=== PATIENT | female | born 1940 | race Caucasian/White ===

== ENCOUNTER 2021-12-27 10:21 | Inpatient (IN) ==
--- NOTE | 2021-12-27 10:38 | Emergency Department Note ---
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 Staff at her assisted noticed some bright red blood per rectum today and patient seemed more generally weak than usual. No known history of GI bleeding. Patient is a poor historian and is unable to provide any background. No report of any fever, cough, vomiting, or falls. Patient is A&Ox1 at baseline. Related Data Home Medications Medication Instructions Recorded Confirmed albuterol sulfate 90 mcg/actuation 2 puff INH Q4HP PRN 01/04/19 01/04/19 aerosol inhaler apixaban 2.5 mg tablet 2.5 mg PO BID 01/04/19 08/28/21 arginine 7 gram-glutam 7 1 packet PO BID 01/04/19 01/04/19 gram-CaHMB 1.5 [id number]-rq-min oral pwd pkt levothyroxine 25 mcg tablet 25 mcg PO DAILY 01/04/19 08/28/21 magnesium hydroxide 400 mg/5 mL 30 ml PO BID 01/04/19 08/28/21 oral suspension metoprolol succinate 50 mg 12.5 mg PO HS 01/04/19 08/28/21 tablet,extended release 24 hr [id number] 1 tab PO DAILY 01/04/19 08/28/21 fumarate 7.5 mg-folic acid 400 mcg tablet omeprazole 20 mg capsule,delayed 40 mg PO BID 01/04/19 01/04/19 release polyethylene glycol 3350 17 gram 17 gm PO DAILY 01/04/19 08/28/21 oral powder packet (Miralax) senna leaf extract 176 mg/5 mL 176 mg PO BID 01/04/19 08/28/21 oral syrup spironolactone 25 1 tab PO DAILY 01/04/19 08/28/21 mg-hydrochlorothiazide 25 mg tablet Zoloft PO HS 05/18/19 acetaminophen 500 mg tablet 650 mg PO Q4HP PRN 05/18/19 08/28/21 melatonin 5 mg tablet 5 mg PO HS 05/18/19 08/28/21 Allergies Allergy/AdvReac Type Severity Reaction Status Date / Time Penicillins AdvReac Verified 05/18/19 04:35 Review of Systems ROS ROS Narrative: Narrative: Limitations: ROS unobtainable due to patients medical condition Cardiovascular: Denies chest pain Respiratory: Denies shortness of breath Gastrointestinal: Reports hematochezia; Denies abdominal pain or nausea Neurological: Denies headache PFSH Narrative Patient History Narrative: Narrative: Medical/Surgical/Family History All Active Problems (Updated 12/27/21 @ 14:56 by Rolando Drake MD) Cellulitis (Acute) History of fall (Acute) Fall (Acute) Chronic anticoagulation (Acute) UTI (urinary tract infection) (Acute) Panniculitis (Acute) Acute lower GI bleeding (Acute) Medical History Cellulitis Social History Smoking Status: Former smoker Exam Narrative Narrative: Narrative: General Limitations: altered mental status General appearance: Present sleepy and other (Arousable to voice) Head Head: Present atraumatic and normocephalic Eye Eye: Present normal appearance, PERRL and EOMI; Absent scleral icterus or co njunctival injection ENT ENT: Present mucous membranes moist Neck Neck: Present normal inspection, full ROM and trachea midline Chest Chest: Present symmetric chest wall rise Respiratory Respiratory: Present normal lung sounds bilaterally; Absent respiratory distress, wheezes, stridor, accessory muscle use or prolonged expiratory phase Cardiovascular Cardiovascular: Present regular rate and normal rhythm; Absent systolic murmur or diastolic murmur Adbominal Abdominal: Present soft; Absent distention, tenderness, guarding, rebound or rigidity Rectal Rectal: Present normal inspection, heme (+) stool and bloody stool; Absent decreased rectal tone or tenderness Extremities Extremities: Present normal inspection; Absent pretibial edema Neurological Neurological: Present alert and other (Generally weak, oriented x1, no focal neurologic deficits noted. Difficulty with neurologic exam given her history of dementia); Absent motor sensory deficit Expanded Neurological Patient oriented to: Present person; Absent place or time Speech: Absent expressive aphasia or dysarthria Motor strength - LUE: 4/5 Motor strength - RUE: 4/5 Motor strength - LLE: 4/5 Motor strength - RLE: 4/5 UPPER MOTOR NEURON EXAM: stacy neglect: Normal SENSORY EXAM UPPER EXTREMITY: Normal: light touch SENSORY EXAM LOWER EXTREMITY: Normal: light touch Coma Scale Eye Opening: To Voice Coma Scale Motor Response: Obeys Commands Coma Scale Verbal Response: Oriented Coma Scale Total: 14 Psychiatric Psychiatric: Present normal affect and normal mood Skin Skin: Present warm (WNL) and dry Course Consultations Consultation #1: Dr. Liriano, hospitalist Time: 14:45 Vital Signs Vital signs: Vital Signs Pulse Rate 106 H 12/27/21 10:21 Respiratory Rate 16 12/27/21 10:21 Blood Pressure 115/98 12/27/21 10:21 Pulse Oximetry (%) 98 12/27/21 10:21 Temperature 96.8 F L 12/27/21 16:00 Pulse Rate 98 H 12/27/21 16:00 Respiratory Rate 16 12/27/21 16:00 Blood Pressure 104/78 12/27/21 16:00 Pulse Oximetry (%) 100 12/27/21 16:00 MDM MDM Narrative Medical decision making narrative: 81-year-old female presenting with rectal bleeding. She is mildly tachycardic but otherwise vital signs are stable. She does have gross rectal bleeding on exam. Will obtain labs, chest x-ray, UA, and reevaluate. Labs are stable, hemoglobin is 13.2. She does have mild hyperkalemia to 5.2. BUN is elevated to 38 consistent with her lower GI bleeding. Vital signs are stable. I discussed the patient with hospitalist, Dr. Liriano, who will admit. Lab Data Lab results reviewed: Yes I reviewed the patient's lab results. Result diagrams: 12/27/21 17:33 12/27/21 11:25 Labs: Lab Results 12/27/21 12/27/21 12/27/21 Range/Units 11:25 11:26 11:26 WBC 14.7 H (4.5-11.0) K/mcL RBC 4.07 (3.59-5.38) M/mcL Hgb 13.2 (11.2-15.7) g/dL Hct 41.6 (34.1-44.9) % MCV 102.2 H (80.0-100.0) fL MCH 32.4 (26.0-34.0) pg MCHC 31.7 (31.0-36.0) g/dL RDW 13.1 (11.5-14.5) % Plt Count 379 (140-440) K/mcL MPV 10.0 (7.4-10.4) fL Neut % (Auto) 92.1 H (38.0-78.0) % Lymph % (Auto) 4.1 L (15.5-49.0) % [place] % (Auto) 3.5 (1.0-12.0) % Eos % (Auto) 0.2 (0.0-7.0) % Baso % (Auto) 0.1 (0.0-2.0) % Lymph # (Auto) 0.60 L (1.50-4.80) K/mcL [place] # (Auto) 0.52 (0.10-0.90) K/mcL Eos # (Auto) 0.03 (0.00-0.70) K/mcL Baso # (Auto) 0.01 (0.00-0.30) K/mcL Absolute Neutrophils 13.53 H (1.80-8.00) K/mcL PT (11.9-14.5) sec INR (0.9-1.1) APTT (20.0-37.0) sec VBG Lactic Acid 1.4 (0.5-2.0) mmol/L Sodium 133 (133-145) mmol/L Potassium 5.2 H (3.3-5.1) mmol/L Chloride 100 (96-108) mmol/L Carbon Dioxide 24 (22-30) mmol/L Anion Gap 9.0 (8.0-16.0) BUN 38 H (8-23) mg/dL Creatinine 0.9 (0.6-1.1) mg/dL GFR Calculation 59 Glucose 139 H (70-105) mg/dL Calcium 9.3 (8.6-10.4) mg/dL Total Bilirubin 0.8 (0.1-1.0) mg/dL AST 17 (<32) U/L ALT 9 (<40) U/L Alkaline Phosphatase 116 (39-117) U/L Total Protein 6.9 (5.9-8.4) gm/dL Albumin 2.4 L (3.2-5.2) gm/dL Globulin 4.5 H (2.2-3.7) gm/dL Albumin/Globulin Ratio 0.5 L (1.0-2.3) Urine Color Urine Appearance (Clear) Urine pH (5.0-9.0) Ur Specific [place] (1.000-1.035) Urine Protein (Negative) mg/dL Urine Glucose (UA) (Negative) mg/dL Urine Ketones (Negative) mg/dL Urine Occult Blood (Negative) jacquelyn/mcL Urine Nitrate (Negative) Urine Bilirubin (Negative) mg/dL Urine Urobilinogen mg/dL Ur Leukocyte Esterase (Negative) /uL Urine RBC (0-3) /hpf Urine WBC (0-4) /hpf Ur Squamous Epith Cells (0-4) /hpf Ur Transition Epith Cell (0-2) /hpf Amorphous Crystals (None) /hpf Urine Bacteria (0) /hpf Hyaline Casts (0-2) /lph Urine Mucus (None) /hpf Ur Culture Indicated? 12/27/21 12/27/21 Range/Units 11:30 12:30 WBC (4.5-11.0) K/mcL RBC (3.59-5.38) M/mcL Hgb (11.2-15.7) g/dL Hct (34.1-44.9) % MCV (80.0-100.0) fL MCH (26.0-34.0) pg MCHC (31.0-36.0) g/dL RDW (11.5-14.5) % Plt Count (140-440) K/mcL MPV (7.4-10.4) fL Neut % (Auto) (38.0-78.0) % Lymph % (Auto) (15.5-49.0) % [place] % (Auto) (1.0-12.0) % Eos % (Auto) (0.0-7.0) % Baso % (Auto) (0.0-2.0) % Lymph # (Auto) (1.50-4.80) K/mcL [place] # (Auto) (0.10-0.90) K/mcL Eos # (Auto) (0.00-0.70) K/mcL Baso # (Auto) (0.00-0.30) K/mcL Absolute Neutrophils (1.80-8.00) K/mcL PT 23.5 H (11.9-14.5) sec INR 2.0 H (0.9-1.1) APTT 36.2 (20.0-37.0) sec VBG Lactic Acid (0.5-2.0) mmol/L Sodium (133-145) mmol/L Potassium (3.3-5.1) mmol/L Chloride (96-108) mmol/L Carbon Dioxide (22-30) mmol/L Anion Gap (8.0-16.0) BUN (8-23) mg/dL Creatinine (0.6-1.1) mg/dL GFR Calculation Glucose (70-105) mg/dL Calcium (8.6-10.4) mg/dL Total Bilirubin (0.1-1.0) mg/dL AST (<32) U/L ALT (<40) U/L Alkaline Phosphatase (39-117) U/L Total Protein (5.9-8.4) gm/dL Albumin (3.2-5.2) gm/dL Globulin (2.2-3.7) gm/dL Albumin/Globulin Ratio (1.0-2.3) Urine Color Wendi Urine Appearance Clear (Clear) Urine pH 5.5 (5.0-9.0) Ur Specific [place] 1.020 (1.000-1.035) Urine Protein 30 mg/dl A (Negative) mg/dL Urine Glucose (UA) Negative (Negative) mg/dL Urine Ketones Trace A (Negative) mg/dL Urine Occult Blood Trace-intact A (Negative) jacquelyn/mcL Urine Nitrate Negative (Negative) Urine Bilirubin Negative (Negative) mg/dL Urine Urobilinogen Normal mg/dL Ur Leukocyte Esterase Negative (Negative) /uL Urine RBC 18 H (0-3) /hpf Urine WBC 10 H (0-4) /hpf Ur Squamous Epith Cells 22 H (0-4) /hpf Ur Transition Epith Cell 1 (0-2) /hpf Amorphous Crystals Few A (None) /hpf Urine Bacteria Few A (0) /hpf Hyaline Casts 10 H (0-2) /lph Urine Mucus Mod A (None) /hpf Ur Culture Indicated? No ED POC Tests ED POC Tests: TREVA - SARS Antigen Negative Radiology Data Radiology results reviewed: Yes I reviewed the patient's radiology results. Radiology results narrative: Ordering Physician:Rolando Drake M.D. Date of Service:12/27/21 Procedure(s):XR chest 1V portable CLINICAL INFORMATION: Dyspnea COMPARISON: 08/28/2021 plain film and chest CT 05/14/2019 TECHNIQUE: Portable FINDINGS: Moderate cardiomegaly is unchanged. Known saccular aneurysm of the ascending thoracic aorta is unchanged by plain film. There is also stable ectasia of the remaining thoracic aorta. The remaining mediastinum and pulmonary vascular are normal. Lungs are clear. No effusions. Mild elevation left diaphragm is unchanged. 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 No acute cardiopulmonary disease Mild chronic elevation left diaphragm. Interpreted and Authenticated by: Nico Moreno 12/27/21 EKG Data EKG #1: EKG attestation: Yes I reviewed and interpreted this EKG. and Yes There are no EKG findings of acute coronary syndrome EKG results narrative: Atrial fibrillation at 117 bpm. Left bundle branch block noted. No ST elevation or depression. Interpretation: no acute changes Discharge Plan Patient/Caregiver Discharge Instructions Pt seen by BATCH STILL OPERATOR/PA only: No Clinical Impression: Acute lower GI bleeding Patient Disposition: Xfer As Inpt ([facility]) Condition: Fair Discharge Date/Time: 12/27/21 15:55
[2021-12-27] MEDS ORDERED: 0.9 % SODIUM CHLORIDE 1,000 ML IV ONE ×2 (10:52→15:53)
--- NOTE | 2021-12-27 11:42 | XRay Report ---
CLINICAL INFORMATION: Dyspnea COMPARISON: 08/28/2021 plain film and chest CT 05/14/2019 TECHNIQUE: Portable FINDINGS: Moderate cardiomegaly is unchanged. Known saccular aneurysm of the ascending thoracic aorta is unchanged by plain film. There is also stable ectasia of the remaining thoracic aorta. The remaining mediastinum and pulmonary vascular are normal. Lungs are clear. No effusions. Mild elevation left diaphragm is unchanged. 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 No acute cardiopulmonary disease Mild chronic elevation left diaphragm. Interpreted and Authenticated by: Nico Moreno 12/27/21
[2021-12-27 12:16] LABS: Basophils # (Auto) 0.01 K/mcL (0.00-0.30); Basophils % (Auto) 0.1 % (0.0-2.0); Eosinophils # (Auto) 0.03 K/mcL (0.00-0.70); Eosinophils % (Auto) 0.2 % (0.0-7.0); Hematocrit 41.6 % (34.1-44.9); Hemoglobin 13.2 g/dL (11.2-15.7); Lymphocytes % (Auto) 4.1 % (15.5-49.0); Mean Cell Volume 102.2 fL (80.0-100.0); Mean Corpuscular HGB Conc 31.7 g/dL (31.0-36.0); Monocytes # (Auto) 0.52 K/mcL (0.10-0.90); Monocytes % (Auto) 3.5 % (1.0-12.0); Neutrophils % (Auto) 92.1 % (38.0-78.0); Platelet Count 379 K/mcL (140-440); RBC 4.07 M/mcL (3.59-5.38); Red Cell Distribution Width 13.1 % (11.5-14.5); WBC 14.7 K/mcL (4.5-11.0)
[2021-12-27 12:35] LABS: ALT/SGPT 9 U/L (<40); AST/SGOT 17 U/L (<32); Albumin 2.4 gm/dL (3.2-5.2); Albumin/Globulin Ratio 0.5 (1.0-2.3); Alkaline Phosphatase 116 U/L (39-117); Bilirubin,Total 0.8 mg/dL (0.1-1.0); Blood Urea Nitrogen 38 mg/dL (8-23); Calcium 9.3 mg/dL (8.6-10.4); Carbon Dioxide 24 mmol/L (22-30); Chloride 100 mmol/L (96-108); Globulin 4.5 gm/dL (2.2-3.7); Glomerular Filtration Rate 59; Glucose 139 mg/dL (70-105)
[2021-12-27 12:47] LABS: Partial Thromboplastin Time 36.2 sec (20.0-37.0)
[2021-12-27 12:51] LABS: Prothrombin Time 23.5 sec (11.9-14.5)
[2021-12-27 13:59] LABS: Appearance,Urine Clear (Clear); Bacteria,Urine FEW /hpf (0); Bilirubin,Urine Negative (Negative); Color,Urine Amber; Culture Indicated,Urine No; Glucose,Urine (UA) Negative (Negative); Ketones,Urine Trace mg/dL (Negative); Leukocyte Esterase,Urine Negative /uL (Negative); Mucus,Urine MOD /hpf; Nitrate,Urine Negative (Negative); PH,Urine 5.5 (5.0-9.0); Urine Amorphous Crystals FEW /hpf; Urine Blood Trace-intact ery/mcL (Negative); Urine Hyaline Cast 10 /lph (0-2); Urine RBC 18 /hpf (0-3); Urine Squamous Epithelial Cell 22 /hpf (0-4); Urine Transitional Epi Cells 1 /hpf (0-2); Urine WBC 10 /hpf (0-4); Urobilinogen,Urine Normal
--- NOTE | 2021-12-27 15:24 | Internal Med History&Physical ---
HPI History of Present Illness Patient information: Note initiated : 12/27/21 at 3:12 pm Service Date, if different from initiated Date: [] Patient: Vickie Guadarrama 81 y/o F admitted on for weakness. Chief Complaint: [] History of present illness: Vickie Guadarrama is a 81 year old female with a history not limited to hypertension, atrial fibrillation, hypothyroidism, ascending aortic aneurysm, vascular dementia, reported upper GI bleed in 2019 who currently resides in a assisted facility. Staff at the SNF noticed bright red blood per rectum on 12/27/2021. The patient was sent to the emergency department where she was noted to have melanotic stools. The patient was hemodynamically stable, hemoglobin was normal at 13.2. The patient was noted to be taking Eliquis 2.5 mg twice daily for atrial fibrillation. Hospital medicine was asked to admit the patient for monitoring and further management. The patient is unable to provide any history due to dementia. Collateral information obtained from the patient's daughter revealed that the patient had a GI bleed in 2019 that was probably an upper GI bleed. Eliquis was held at that time, the patient was treated with PPI. Patient's daughter recalls the diagnosis of a gastric ulcer but does not remember the details. She said that Eliquis was held at that time but the patient unfortunately developed an ischemic stroke likely secondary to atrial fibrillation and Eliquis was resumed. Goals of care were discussed, the patient's daughter confirmed that thepatient's CODE STATUS is DNR/DNI. Review of systems: Unable to obtain due to dementia. Physical exam Head: Atraumatic, normal inspection. Eyes: normal appearance, no scleral icterus. Neck: full ROM Respiratory: no respiratory distress. Cardiovascular: Irregular tachycardia. GI/Abdominal: soft, nontender, no guarding. Extremities: full range of motion, nontender. Neurological: intact motor, intact sensation. Psychiatric: Cognitive impairment. Skin: warm, normal color PFSH PFSH All Active Problems (Updated 12/27/21 @ 14:56 by Rolando Drake MD) Cellulitis (Acute) History of fall (Acute) Fall (Acute) Chronic anticoagulation (Acute) UTI (urinary tract infection) (Acute) Panniculitis (Acute) Acute lower GI bleeding (Acute) Medical History Cellulitis MEDS/ALLERGIES Home Medications and Allergies Home Medications Medication Instructions Recorded Confirmed Type albuterol sulfate 90 mcg/actuation 2 puff INH Q4HP PRN 01/04/19 01/04/19 History aerosol inhaler apixaban 2.5 mg tablet 2.5 mg PO BID 01/04/19 08/28/21 History arginine 7 gram-glutam 7 1 packet PO BID 01/04/19 01/04/19 History gram-CaHMB 1.5 [id number]-[id number]-min oral pwd pkt levothyroxine 25 mcg tablet 25 mcg PO DAILY 01/04/19 08/28/21 History magnesium hydroxide 400 mg/5 mL 30 ml PO BID 01/04/19 08/28/21 History oral suspension metoprolol succinate 50 mg 12.5 mg PO HS 01/04/19 08/28/21 History tablet,extended release 24 hr [id number]-yauz 1 tab PO DAILY 01/04/19 08/28/21 History fumarate 7.5 mg-folic acid 400 mcg tablet omeprazole 20 mg capsule,delayed 40 mg PO BID 01/04/19 01/04/19 History release polyethylene glycol 3350 17 gram 17 gm PO DAILY 01/04/19 08/28/21 History oral powder packet (Miralax) senna leaf extract 176 mg/5 mL 176 mg PO BID 01/04/19 08/28/21 History oral syrup spironolactone 25 1 tab PO DAILY 01/04/19 08/28/21 History mg-hydrochlorothiazide 25 mg tablet Zoloft PO HS 05/18/19 History acetaminophen 500 mg tablet 650 mg PO Q4HP PRN 05/18/19 08/28/21 History melatonin 5 mg tablet 5 mg PO HS 05/18/19 08/28/21 History Allergies Allergy/AdvReac Type Severity Reaction Status Date / Time Penicillins AdvReac Verified 05/18/19 04:35 EXAM Constitutional Vitals: Pulse Resp BP Pulse Ox 106 H 21 122/92 98 12/27/21 10:21 12/27/21 14:31 12/27/21 14:31 12/27/21 10:21 DATA Data Completed and Pending Labs: Labs from last 24 hours 12/27/21 12/27/21 12/27/21 12:30 11:30 11:26 WBC RBC Hgb Hct MCV MCH MCHC RDW Plt Count MPV Neut % (Auto) Lymph % (Auto) [place] % (Auto) Eos % (Auto) Baso % (Auto) Lymph # (Auto) [place] # (Auto) Eos # (Auto) Baso # (Auto) Absolute Neutrophils PT 23.5 H INR 2.0 H APTT 36.2 VBG Lactic Acid 1.4 Sodium Potassium Chloride Carbon Dioxide Anion Gap BUN Creatinine GFR Calculation Glucose Calcium Total Bilirubin AST ALT Alkaline Phosphatase Total Protein Albumin Globulin Albumin/Globulin Ratio Urine Color Wendi Urine Appearance Clear Urine pH 5.5 Ur Specific [place] 1.020 Urine Protein 30 mg/dl A Urine Glucose (UA) Negative Urine Ketones Trace A Urine Occult Blood Trace-intact A Urine Nitrate Negative Urine Bilirubin Negative Urine Urobilinogen Normal Ur Leukocyte Esterase Negative Urine RBC 18 H Urine WBC 10 H Ur Squamous Epith Cells 22 H Ur Transition Epith Cell 1 Amorphous Crystals Few A Urine Bacteria Few A Hyaline Casts 10 H Urine Mucus Mod A Ur Culture Indicated? No 12/27/21 12/27/21 11:26 11:25 WBC 14.7 H RBC 4.07 Hgb 13.2 Hct 41.6 MCV 102.2 H MCH 32.4 MCHC 31.7 RDW 13.1 Plt Count 379 MPV 10.0 Neut % (Auto) 92.1 H Lymph % (Auto) 4.1 L [place] % (Auto) 3.5 Eos % (Auto) 0.2 Baso % (Auto) 0.1 Lymph # (Auto) 0.60 L [place] # (Auto) 0.52 Eos # (Auto) 0.03 Baso # (Auto) 0.01 Absolute Neutrophils 13.53 H PT INR APTT VBG Lactic Acid Sodium 133 Potassium 5.2 H Chloride 100 Carbon Dioxide 24 Anion Gap 9.0 BUN 38 H Creatinine 0.9 GFR Calculation 59 Glucose 139 H Calcium 9.3 Total Bilirubin 0.8 AST 17 ALT 9 Alkaline Phosphatase 116 Total Protein 6.9 Albumin 2.4 L Globulin 4.5 H Albumin/Globulin Ratio 0.5 L Urine Color Urine Appearance Urine pH Ur Specific [place] Urine Protein Urine Glucose (UA) Urine Ketones Urine Occult Blood Urine Nitrate Urine Bilirubin Urine Urobilinogen Ur Leukocyte Esterase Urine RBC Urine WBC Ur Squamous Epith Cells Ur Transition Epith Cell Amorphous Crystals Urine Bacteria Hyaline Casts Urine Mucus Ur Culture Indicated? A/P Narrative A/P Narrative: Assessment: 81 year old female with a history not limited to hypertension, atrial fibrillation, hypothyroidism, ascending aortic aneurysm, vascular dementia, reported upper GI bleed in 2019 who currently resides in a assisted facility admitted for a GI bleed. Initial hemoglobin in the ED was normal, the patient was also hemodynamically stable. Goals of care reviewed with the patient's daughter, the patient is DNR/DNI. Plan is to monitor the patient for ongoing bleeding while holding anticoagulation. If the patient continues to have a GI bleed then family will consider endoscopic work-up. #Acute GI bleed #Reported history of upper GI bleed #Atrial fibrillation on Eliquis #Essential hypertension #History of ischemic stroke #Hypothyroidism #Ascending aortic aneurysm #Vascular dementia Plan -Admit to observation for monitoring and conservative management unless the patient continues to bleed. -Protonix IV 80 mg bolus then 40 mg twice daily. -Trend hemoglobin. -Stool H. pylori antigen. -Monitor for ongoing GI bleed. -Home medication reconciliation. -Consider endoscopic work-up if the patient continues to have GI bleeding. -CODE STATUS: DNR/DNI -Disposition: Back to SNF when stable. Time Spent With Patient Time: Total time spent is greater than 50% in coordination of care (as documented) at patient's floor/unit and/or counseling patient:
[2021-12-27] MEDS ORDERED: ACETAMINOPHEN 325 MG TABLET PO PRN (15:26)
[2021-12-27] MEDS ORDERED: PANTOPRAZOLE 40 MG VIAL IV ONE (15:26)
[2021-12-27] MEDS ORDERED: ONDANSETRON 4 MG/2 ML VIAL IV PRN (15:26)
[2021-12-27] MEDS: PANTOPRAZOLE 40 MG VIAL IV SCH (18:06)
[2021-12-27] MEDS: 0.9 % SODIUM CHLORIDE 10 ML SYRINGE IV SCH (23:18)
[2021-12-27] MEDS: SENNOSIDES 1 TABLET PO SCH (23:18)
[2021-12-28] MEDS: 0.9 % SODIUM CHLORIDE 10 ML SYRINGE IV SCH ×3 (06:09→21:29)
[2021-12-28 06:40] LABS: Basophils # (Auto) 0.04 K/mcL (0.00-0.30); Basophils % (Auto) 0.2 % (0.0-2.0); Eosinophils # (Auto) 0.06 K/mcL (0.00-0.70); Eosinophils % (Auto) 0.3 % (0.0-7.0); Hematocrit 37.5 % (34.1-44.9); Hemoglobin 11.7 g/dL (11.2-15.7); Lymphocytes # (Auto) 0.82 K/mcL (1.50-4.80); Lymphocytes % (Auto) 4.4 % (15.5-49.0); Mean Cell Volume 102.7 fL (80.0-100.0); Mean Corpuscular HGB Conc 31.2 g/dL (31.0-36.0); Mean Platelet Volume 10.2 fL (7.4-10.4); Monocytes # (Auto) 0.67 K/mcL (0.10-0.90); Monocytes % (Auto) 3.6 % (1.0-12.0); Neutrophils % (Auto) 91.5 % (38.0-78.0); Platelet Count 400 K/mcL (140-440); RBC 3.65 M/mcL (3.59-5.38); Red Cell Distribution Width 13.2 % (11.5-14.5); WBC 18.8 K/mcL (4.5-11.0)
[2021-12-28 07:25] LABS: ALT/SGPT 7 U/L (<40); AST/SGOT 14 U/L (<32); Albumin 2.4 gm/dL (3.2-5.2); Albumin/Globulin Ratio 0.8 (1.0-2.3); Alkaline Phosphatase 107 U/L (39-117); Bilirubin,Direct 0.3 mg/dL (<0.3); Bilirubin,Total 0.6 mg/dL (0.1-1.0); Blood Urea Nitrogen 37 mg/dL (8-23); Calcium 8.6 mg/dL (8.6-10.4); Carbon Dioxide 18 mmol/L (22-30); Chloride 110 mmol/L (96-108); Globulin 3.2 gm/dL (2.2-3.7); Glomerular Filtration Rate 59; Glucose 90 mg/dL (70-105); Iron 19 ug/dL (37-145); Lactate Dehydrogenase 198 U/L (135-225); Phosphorous 2.7 mg/dL (2.5-4.5); TIBC Calculation 134 ug/dl (228-428); Transferrin % Saturation 14 % (15-50); Triglycerides 104 mg/dL (<150); Uric Acid 7.6 mg/dL (2.5-8.0)
[2021-12-28 07:35] LABS: Ferritin 306.4 ng/mL (30.0-400.0)
--- NOTE | 2021-12-28 09:19 | EKG ---
[facility] Test Date: 2021-12-27 Pat Name: Vickie Guadarrama Department: ED Room: Gender: Female [employer]: : [id number] Requested By: Rolando Drake Order Number: [id number] Reading MD: Jeremi Elder Measurements Intervals [place] Rate: 117 P: ME: QRS: -46 QRSD: 123 T: 105 QT: 362 QTc: 505 Interpretive Statements Atrial fibrillation Left bundle branch block Electronically Signed On 12-28-2021 9:19:03 PST by Jeremi Elder /[email or web address]/[email or web address]/[id number]
[2021-12-28] MEDS: PANTOPRAZOLE 40 MG VIAL IV SCH ×2 (09:38→17:30)
--- NOTE | 2021-12-28 10:55 | XRay Report ---
CLINICAL INFORMATION: Elevated white blood cell count COMPARISON: 12/27/2021 TECHNIQUE: Portable FINDINGS: Moderate cardiomegaly is unchanged. Known saccular aneurysm of the ascending thoracic aorta is unchanged by plain film. There is also stable ectasia of the remaining thoracic aorta. The remaining mediastinum and pulmonary vascular are normal. Lungs are clear. No effusions. Mild elevation left diaphragm is unchanged. 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 No acute cardiopulmonary disease Mild chronic elevation left diaphragm. Interpreted and Authenticated by: Nico Moreno 12/28/21
--- NOTE | 2021-12-28 13:18 | Internal Med Progress Note ---
SUBJECTIVE Subjective Patient information: Note initiated : 12/28/21 at 1:12 pm Service Date, if different from initiated Date: [] Patient: Vickie Guadarrama 81 y/o F admitted on 12/27/21 for weakness. Chief Complaint: [] Interval history: Vickie Guadarrama is a 81 year old female with a history not limited to hypertension, atrial fibrillation, hypothyroidism, ascending aortic aneurysm, vascular dementia, reported upper GI bleed in 2019 who currently resides in a correction facility. Staff at the SNF noticed bright red blood per rectum on 12/27/2021. The patient was sent to the emergency department where she was noted to have melanotic stools. The patient was hemodynamically stable, hemoglobin was normal at 13.2. The patient was noted to be taking Eliquis 2.5 mg twice daily for atrial fibrillation. Hospital medicine was asked to admit the patient for monitoring and further management. The patient is unable to provide any history due to dementia. Collateral information obtained from the patient's daughter revealed that the patient had a GI bleed in 2019 that was probably an upper GI bleed. Eliquis was held at that time, the patient was treated with PPI. Patient's daughter recalls the diagnosis of a gastric ulcer but does not remember the details. She said that Eliquis was held at that time but the patient unfortunately developed an ischemic stroke likely secondary to atrial fibrillation and Eliquis was resumed. Goals of care were discussed, the patient's daughter confirmed that the patient's CODE STATUS is DNR/DNI. 12/28 Witnessed bloody stools, hemoglobin trended down but still low normal range. WBC increased from 14.7 to 18.8. Potassium mildly elevated at 5.2. Iron studies consistent with chronic inflammation. Goals of care discussed with the patient's daughter Mena Pathak, she does not want invasive procedures performed but is ok with serial blood draws to follow hemoglobin and medical management as cu rrently being provided. Physical exam Head: Atraumatic, normal inspection. Eyes: normal appearance, no scleral icterus. Neck: full ROM Respiratory: no respiratory distress. Cardiovascular: Irregular rhythm, normal rate. GI/Abdominal: soft, nontender, no guarding. Extremities: full range of motion, nontender. Neurological: intact motor, intact sensation. Psychiatric: Severe cognitive impairment. Skin: warm, normal color Constitutional Vitals: Vital Signs Temp Pulse Resp BP Pulse Ox 97 F 72 24 H 109/76 96 12/28/21 06:50 12/28/21 06:50 12/28/21 06:50 12/28/21 06:50 12/28/21 06:50 Period Temp Pulse Resp BP Sys/Ramírez Pulse Ox Last 24 Hr 96.8 F-97.4 F 69-115 16-26 104-134/73-106 92-100 Intake and Output 12/27/21 12/28/21 12/28/21 21:59 05:59 13:59 Intake Total 1999 0 Output Total 150 Balance 1999150 Weight 58.377 kg Intake & Output: Intake & Output 12/27/21 12/28/21 12/28/21 21:59 05:59 13:59 Intake Total 1999 0 Output Total 150 Balance 1999150 Weight 58.377 kg Intake: IV 2000 Sodium Chloride 0.9% 1,000 ml @ 2000 Wide Open IV BOLUS ONE Rx#: [id number] Oral 0 Output: Urine Catheter Amount 150 Other: Urine Appearance Clear Urine Color Light Wendi Uretheral ([place]) Dark Wendi Stool Size Large Stool Color Dark Red Blood # of times incontinent of 1 Bowels OBJ DATA Labs CBC & Chem 7: 12/28/21 10:20 12/28/21 05:34 Labs: Abnormal Lab Results 12/28/21 12/28/21 12/27/21 05:34 05:34 12:30 WBC 18.8 H MCV 102.7 H Neut % (Auto) 91.5 H Lymph % (Auto) 4.4 L Lymph # (Auto) 0.82 L Absolute Neutrophils 17.18 H PT INR Potassium 5.2 H Chloride 110 H Carbon Dioxide 18 L BUN 37 H Glucose Iron 19 L TIBC 134 L Transferrin % Sat 14 L Direct Bilirubin 0.3 H Total Protein 5.6 L Albumin 2.4 L Globulin Albumin/Globulin Ratio 0.8 L Urine Protein 30 mg/dl A Urine Ketones Trace A Urine Occult Blood Trace-intact A Urine RBC 18 H Urine WBC 10 H Ur Squamous Epith Cells 22 H Amorphous Crystals Few A Urine Bacteria Few A Hyaline Casts 10 H Urine Mucus Mod A 12/27/21 12/27/21 12/27/21 11:30 11:26 11:25 WBC 14.7 H MCV 102.2 H Neut % (Auto) 92.1 H Lymph % (Auto) 4.1 L Lymph # (Auto) 0.60 L Absolute Neutrophils 13.53 H PT 23.5 H INR 2.0 H Potassium 5.2 H Chloride Carbon Dioxide BUN 38 H Glucose 139 H Iron TIBC Transferrin % Sat Direct Bilirubin Total Protein Albumin 2.4 L Globulin 4.5 H Albumin/Globulin Ratio 0.5 L Urine Protein Urine Ketones Urine Occult Blood Urine RBC Urine WBC Ur Squamous Epith Cells Amorphous Crystals Urine Bacteria Hyaline Casts Urine Mucus Meds: Medications Acetaminophen (Acetaminophen 325 Mg Tablet) 650 mg PO Q6HP PRN; Protocol PRN Reason: Per Pain Protocol/Fever > 101 Ondansetron HCl (Ondansetron 4 Mg/2 Ml Vial) 4 mg IV Q6HP PRN PRN Reason: Nausea And Vomiting Pantoprazole Sodium (Pantoprazole 40 Mg Vial) 40 mg IV BIDAC [facility] Last Admin: 12/28/21 09:38 Dose: 40 mg Documented by: Senna (Sennosides 1 Tablet) 2 tab PO HS [facility] Last Admin: 12/27/21 23:18 Dose: Not Given Documented by: Sodium Chloride (0.9 % Sodium Chloride 10 Ml Syringe) 10 ml IV Q8 [facility] Last Admin: 12/28/21 06:09 Dose: 10 ml Documented by: A/P Narrative A/P Narrative: Assessment: 81 year old female with a history not limited to hypertension, atrial fibrillation, hypothyroidism, ascending aortic aneurysm, vascular dementia, reported upper GI bleed in 2019 who currently resides in a correction facility admitted for a GI bleed. Initial hemoglobin in the ED was normal, the patient was also hemodynamically stable. Goals of care reviewed with the patient's daughter, the patient is DNR/DNI. Plan is to monitor the patient for ongoing bleeding while holding anticoagulation. If the patient continues to have a GI bleed then family will consider endoscopic work-up. #Acute GI bleed #Reported history of upper GI bleed #Atrial fibrillation previously on Eliquis #Mild hyperkalemia #Essential hypertension #History of ischemic stroke #Hypothyroidism #Ascending aortic aneurysm #Vascular dementia Plan -Admit to inpatient. -Protonix IV 80 mg bolus then 40 mg twice daily. -Trend hemoglobin, transfuse for hgb<7 or symptomatic anemia . -Stool H. pylori antigen pending. -Monitor for ongoing GI bleed. -Continue home Toprol with holding parameters, Levothyroxine, melatonin HS. -Holding home Eliquis and Spironolactone. -Family does not want invasive procedures performed. -CODE STATUS: DNR/DNI -Disposition: Back to SNF when stable. Time Spent With Patient Time: Total time spent is greater than 50% in coordination of care (as documented) at patient's floor/unit and/or counseling patient: QUALITY VTE Deep Vein Thrombosis/Pulmonary Embolism Present on Admission: No
[2021-12-28] MEDS ORDERED: 0.9 % SODIUM CHLORIDE 500 ML IV ONE (14:28)
[2021-12-28] MEDS: MELATONIN 3 MG TABLET PO SCH (21:29)
[2021-12-28] MEDS: METOPROLOL SUCCINATE 25 MG TAB.XL.24H PO SCH (21:29)
[2021-12-28] MEDS: SENNOSIDES 1 TABLET PO SCH (21:29)
[2021-12-29] MEDS: 0.9 % SODIUM CHLORIDE 10 ML SYRINGE IV SCH ×3 (05:55→21:20)
[2021-12-29] MEDS: PANTOPRAZOLE 40 MG VIAL IV SCH ×2 (07:18→17:15)
[2021-12-29] MEDS: LEVOTHYROXINE 25 MCG TABLET PO SCH (07:19)
[2021-12-29 08:39] LABS: Basophils # (Auto) 0.02 K/mcL (0.00-0.30); Basophils % (Auto) 0.1 % (0.0-2.0); Eosinophils # (Auto) 0 K/mcL (0.00-0.70); Eosinophils % (Auto) 0 % (0.0-7.0); Hemoglobin 10.5 g/dL (11.2-15.7); Lymphocytes # (Auto) 0.62 K/mcL (1.50-4.80); Lymphocytes % (Auto) 3.5 % (15.5-49.0); Mean Cell Volume 104.9 fL (80.0-100.0); Mean Corpuscular HGB Conc 30.9 g/dL (31.0-36.0); Monocytes # (Auto) 0.58 K/mcL (0.10-0.90); Monocytes % (Auto) 3.3 % (1.0-12.0); Neutrophils % (Auto) 93.1 % (38.0-78.0); Platelet Count 328 K/mcL (140-440); RBC 3.24 M/mcL (3.59-5.38); Red Cell Distribution Width 13.3 % (11.5-14.5); WBC 17.6 K/mcL (4.5-11.0)
[2021-12-29 09:02] LABS: Blood Urea Nitrogen 37 mg/dL (8-23); Calcium 8.7 mg/dL (8.6-10.4); Carbon Dioxide 19 mmol/L (22-30); Chloride 108 mmol/L (96-108); Glomerular Filtration Rate 59; Glucose 111 mg/dL (70-105); Phosphorous 2.4 mg/dL (2.5-4.5)
[2021-12-29] MEDS ORDERED: 0.9 % SODIUM CHLORIDE 1,000 ML IV ONE (09:45)
--- NOTE | 2021-12-29 11:35 | Internal Med Progress Note ---
SUBJECTIVE Subjective Patient information: Note initiated : 12/29/21 at 11:33 am Service Date, if different from initiated Date: Patient: Vickie Guadarrama 81 y/o F admitted on 12/28/21 for weakness. Chief Complaint: GIB Interval history: Last BRBPR was 2 days ago, Eliquis is held H/H has been stable x 3 days Pertinent ROS: No obtained due to AMS/dementia Constitutional Vitals: Vital Signs Temp Pulse Resp BP Pulse Ox 97.0 F 90 18 138/85 95 12/29/21 11:31 12/29/21 11:31 12/29/21 11:31 12/29/21 11:31 12/29/21 11:31 Period Temp Pulse Resp BP Sys/Ramírez Pulse Ox Last 24 Hr 96.5 F-97.4 F 68-125 97-138/71-85 95-97 Intake and Output 12/28/21 12/29/21 12/29/21 21:59 05:59 13:59 Intake Total 500 0 Output Total 100 Balance 500 -100 Weight 57.351 kg 57.351 kg Patient Weight 12/30/21 05:59 Weight 57.351 kg Intake & Output: Intake & Output 12/28/21 12/29/21 12/29/21 21:59 05:59 13:59 Intake Total 500 0 Output Total 100 Balance 500 -100 Weight 57.351 kg 57.351 kg Intake: IV 500 Sodium Chloride 0.9% 500 ml @ 500 Wide Open IV BOLUS ONE Rx#: [id number] Oral 0 Output: Urine Catheter Amount 100 Other: Urine Appearance Clear Urine Color Dark Yellow Uretheral ([place]) Dark Yellow General appearance: disheveled, morbidly obese and no acute distress Exam: No oriented to place, date Head Head exam: Present normocephalic Eye Eye exam: Present conjunctival injection, EOMI and normal appearance ENT ENT exam: Present mucous membranes dry Respiratory Respiratory exam: Present normal respiratory exam, CTAB and wheezes; Absent respiratory distress Cardiovascular Cardiovascular exam: Present normal rate and rhythm and RRR; Absent clicks, diastolic murmur, rubs or systolic murmur GI/Abdominal GI/Abdominal exam: Present soft; Absent guarding, rebound or tenderness Extremities Exam Extremities exam: Present normal capillary refill, Foot pink and warm and neurovascular intact; Absent tenderness Neurological Exam Neurological exam: Present CN II-XII intact; Absent oriented X3 (Oriented to self only) Psychiatric Psychiatric exam: Present flat affect; Absent agitated or anxious Skin Skin exam: Present dry, pallor and warm; Absent rash OBJ DATA Labs CBC & Chem 7: 12/29/21 07:40 12/29/21 07:30 Labs: Abnormal Lab Results 12/29/21 12/29/21 12/28/21 07:40 07:30 17:56 WBC 17.6 H RBC 3.24 L Hgb 10.5 L 11.1 L Hct 34.0 L MCV 104.9 H MCHC 30.9 L Neut % (Auto) 93.1 H Lymph % (Auto) 3.5 L Lymph # (Auto) 0.62 L Absolute Neutrophils 16.37 H PT INR Potassium Chloride Carbon Dioxide 19 L BUN 37 H Glucose 111 H Phosphorus 2.4 L Iron TIBC Transferrin % Sat Direct Bilirubin Total Protein Albumin 2.0 L Globulin Albumin/Globulin Ratio Urine Protein Urine Ketones Urine Occult Blood Urine RBC Urine WBC Ur Squamous Epith Cells Amorphous Crystals Urine Bacteria Hyaline Casts Urine Mucus 12/28/21 12/28/21 12/27/21 05:34 05:34 12:30 WBC 18.8 H RBC Hgb Hct MCV 102.7 H MCHC Neut % (Auto) 91.5 H Lymph % (Auto) 4.4 L Lymph # (Auto) 0.82 L Absolute Neutrophils 17.18 H PT INR Potassium 5.2 H Chloride 110 H Carbon Dioxide 18 L BUN 37 H Glucose Phosphorus Iron 19 L TIBC 134 L Transferrin % Sat 14 L Direct Bilirubin 0.3 H Total Protein 5.6 L Albumin 2.4 L Globulin Albumin/Globulin Ratio 0.8 L Urine Protein 30 mg/dl A Urine Ketones Trace A Urine Occult Blood Trace-intact A Urine RBC 18 H Urine WBC 10 H Ur Squamous Epith Cells 22 H Amorphous Crystals Few A Urine Bacteria Few A Hyaline Casts 10 H Urine Mucus Mod A 12/27/21 12/27/21 12/27/21 11:30 11:26 11:25 WBC 14.7 H RBC Hgb Hct MCV 102.2 H MCHC Neut % (Auto) 92.1 H Lymph % (Auto) 4.1 L Lymph # (Auto) 0.60 L Absolute Neutrophils 13.53 H PT 23.5 H INR 2.0 H Potassium 5.2 H Chloride Carbon Dioxide BUN 38 H Glucose 139 H Phosphorus Iron TIBC Transferrin % Sat Direct Bilirubin Total Protein Albumin 2.4 L Globulin 4.5 H Albumin/Globulin Ratio 0.5 L Urine Protein Urine Ketones Urine Occult Blood Urine RBC Urine WBC Ur Squamous Epith Cells Amorphous Crystals Urine Bacteria Hyaline Casts Urine Mucus Meds: Medications Acetaminophen (Acetaminophen 325 Mg Tablet) 650 mg PO Q6HP PRN; Protocol PRN Reason: Per Pain Protocol/Fever > 101 Levothyroxine Sodium (Levothyroxine 25 Mcg Tablet) 75 mcg PO QAMAC [facility] Last Admin: 12/29/21 07:19 Dose: 75 mcg Documented by: Melatonin (Melatonin 3 Mg Tablet) 3 mg PO [facility] Last Admin: 12/28/21 21:29 Dose: 3 mg Documented by: Metoprolol Succinate (Metoprolol Succinate 25 Mg Tab.Xl.24h) 12.5 mg PO [facility] Last Admin: 12/28/21 21:29 Dose: 12.5 mg Documented by: Ondansetron HCl (Ondansetron 4 Mg/2 Ml Vial) 4 mg IV Q6HP PRN PRN Reason: Nausea And Vomiting Pantoprazole Sodium (Pantoprazole 40 Mg Vial) 40 mg IV BIDAC [facility] Last Admin: 12/29/21 07:18 Dose: 40 mg Documented by: Senna (Sennosides 1 Tablet) 2 tab PO [facility] Last Admin: 12/28/21 21:29 Dose: 2 tab Documented by: Sodium Chloride (0.9 % Sodium Chloride 10 Ml Syringe) 10 ml IV Q8 [facility] Last Admin: 12/29/21 05:55 Dose: 10 ml Documented by: A/P Narrative A/P Narrative: GIB Acute blood loss anemia Chronic anticoagulation -Recheck hemoglobin now, If stable normal plan for discharge back to her SNF today -Holding Caprice -DNR/comfort--->Okay for blood transfusions per DPOA Time Spent With Patient Time: Total time spent is greater than 50% in coordination of care (as documented) at patient's floor/unit and/or counseling patient: 24 minutes QUALITY VTE Deep Vein Thrombosis/Pulmonary Embolism Present on Admission: No
--- NOTE | 2021-12-29 13:38 | Discharge Summary ---
Discharge Provider Provider Patient information: Note initiated : 12/29/21 at 1:37 pm Service Date, if different from initiated Date: [] Patient: Vickie Guadarrama 81 y/o F admitted on 12/28/21 for weakness. Chief Complaint: [] Date of admission: 12/28/21 10:53 Discharge date: 12/29/21 Primary care physician: Jeremi Harp Consults: 12/27/21 Consult to Physician [CONS] Stat Comment: Consulting Provider: Og Liriano Reason For Exam: Physician to Consult Discharge Meds Discharge Medications Home Medications apixaban 2.5 mg tablet 2.5 mg PO BID 01/04/19 [History Confirmed 12/27/21 Last Taken 12/27/21 07:00] levothyroxine 25 mcg tablet 75 mcg PO DAILY 01/04/19 [History Confirmed 12/27/21 Last Taken 12/27/21 05:00] magnesium hydroxide 400 mg/5 mL oral suspension 30 ml PO BID 01/04/19 [History Confirmed 12/27/21 Last Taken 12/27/21 07:30] metoprolol succinate 50 mg tablet,extended release 24 hr 12.5 mg PO HS 01/04/19 [History Confirmed 12/27/21 Last Taken 12/27/21 06:00] oquasstartyz-bpgjkjmz-szmq fumarate 7.5 mg-folic acid 400 mcg tablet 1 tab PO DAILY 01/04/19 [History Confirmed 12/27/21 Last Taken 12/27/21 07:00] polyethylene glycol 3350 17 gram oral powder packet (Miralax) 17 gm PO DAILY 01/04/19 [History Confirmed 12/27/21 Last Taken 12/23/21 17:00] acetaminophen 500 mg tablet 650 mg PO Q4HP PRN 05/18/19 [History Confirmed 12/28/21 Last Taken 12/27/21 03:30] melatonin 5 mg tablet 5 mg PO HS 05/18/19 [History Confirmed 12/27/21 Last Taken 12/26/21 21:00] Artificial Tears 1 drp OU TID 12/28/21 [History Confirmed 12/28/21 Last Taken 12/27/21 07:00] Colace 100 mg PO BID 12/28/21 [History Confirmed 12/28/21 Last Taken 12/27/21 07:00] Dulcolax (bisacodyl) 10 mg PRN PRN 12/28/21 [History Confirmed 12/28/21 Last Taken Unknown] Ferrex 150 150 mg PO QPM 12/28/21 [History Confirmed 12/28/21 Last Taken 12/26/21 17:00] Fleet Enema 118 ml PRN PRN 12/28/21 [History Confirmed 12/28/21 Last Taken Unknown] Mucinex 600 mg PO BIDP PRN 12/28/21 [History Confirmed 12/28/21 Last Taken 12/27/21 08:00] bisacodyl 5 mg tablet,delayed release (Dulcolax (bisacodyl)) See Rx Instructions .ROUTE .COMPLEX 12/28/21 [History Confirmed 12/28/21 Last Taken 12/27/21 07:00] senna 8.6 mg PO QPM 12/28/21 [History Confirmed 12/28/21 Last Taken 12/26/21 17:00] spironolactone 25 mg PO QAM 12/28/21 [History Confirmed 12/28/21 Last Taken 12/27/21 07:00] COURSE Hospital Course Hospital course: Vickie Guadarrama is a 81 year old female with a history not limited to hypertension, atrial fibrillation, hypothyroidism, ascending aortic aneurysm, vascular dementia, reported upper GI bleed in 2019 who currently resides in a detention facility. Staff at the SNF noticed bright red blood per rectum on 12/27/2021. The patient was sent to the emergency department where she was noted to have melanotic stools. The patient was hemodynamically stable, hemoglobin was normal at 13.2. The patient was noted to be taking Eliquis 2.5 mg twice daily for atrial fibrillation. Hospital medicine was asked to admit the patient for monitoring and further management. The patient is unable to provide any history due to dementia. Collateral information obtained from the patient's daughter revealed that the patient had a GI bleed in 2019 that was probably an upper GI bleed. Eliquis was held at that time, the patient was treated with PPI. Patient's daughter recalls the diagnosis of a gastric ulcer but does not remember the details. She said that Eliquis was held at that time but the patient unfortunately developed an ischemic stroke likely secondary to atrial fibrillation and Eliquis was resumed. Goals of care were discussed, the patient's daughter confirmed that the patient's CODE STATUS is DNR/DNI. 12/28 Witnessed bloody stools, hemoglobin trended down but still low normal range. WBC increased from 14.7 to 18.8. Potassium mildly elevated at 5.2. Iron studies consistent with chronic inflammation. Goals of care discussed with the patient's daughter Mena Pathak, she does not want invasive procedures performed but is ok with serial blood draws to follow hemoglobin and medical management as currently being provided. 12/29 No bloody stools overnight, hemoglobin trend stable accounting to the diluting effect of IV fluid. Discharged back to SNF, did not resume Eliquis at discharge. Discharge diagnosis: GI bleed Time Spent with Patient Time attestation: Total time spent providing and/or coordinating discharge services: EXAM Constitutional Vitals: Temp Pulse Resp BP Pulse Ox 97.0 F 90 18 138/85 95 12/29/21 11:31 12/29/21 11:31 12/29/21 11:31 12/29/21 11:31 12/29/21 11:31 Discharge Data Data Completed and Pending Labs on day of discharge: Labs from last 24 hours 12/29/21 12/29/21 12/29/21 12:22 07:40 07:30 WBC 17.6 H RBC 3.24 L Hgb 10.4 L 10.5 L Hct 34.0 L MCV 104.9 H MCH 32.4 MCHC 30.9 L RDW 13.3 Plt Count 328 MPV 10.0 Neut % (Auto) 93.1 H Lymph % (Auto) 3.5 L [place] % (Auto) 3.3 Eos % (Auto) 0 Baso % (Auto) 0.1 Lymph # (Auto) 0.62 L [place] # (Auto) 0.58 Eos # (Auto) 0 Baso # (Auto) 0.02 Absolute Neutrophils 16.37 H Sodium 138 Potassium 5.0 Chloride 108 Carbon Dioxide 19 L Anion Gap 11.0 BUN 37 H Creatinine 0.9 GFR Calculation 59 Glucose 111 H Calcium 8.7 Phosphorus 2.4 L Albumin 2.0 L 12/28/21 12/28/21 12/28/21 17:56 17:56 10:20 WBC RBC Hgb 11.1 L 11.4 Hct MCV MCH MCHC RDW Plt Count MPV Neut % (Auto) Lymph % (Auto) [place] % (Auto) Eos % (Auto) Baso % (Auto) Lymph # (Auto) [place] # (Auto) Eos # (Auto) Baso # (Auto) Absolute Neutrophils Sodium Potassium 4.9 Chloride Carbon Dioxide Anion Gap BUN Creatinine GFR Calculation Glucose Calcium Phosphorus Albumin Preliminary micro results at discharge 12/27/21 11:42 Blood Culture - Preliminary Blood 12/27/21 10:30 Blood Culture - Preliminary Blood Discharge Plan Patient/Caregiver Discharge Instructions Prescriptions: No Action metoprolol succinate 50 MG tablet extended release 24 hr 12.5 mg PO HS 0RF apixaban 2.5 MG tablet 2.5 mg PO BID 0RF polyethylene glycol 3350 [Miralax] 17 GM packet 17 gm PO DAILY 0RF levothyroxine 25 MCG tablet 75 mcg PO DAILY 0RF magnesium hydroxide 30 ML suspension 30 ml PO BID 0RF lymrwvsg-lhy-gmjy fum-folic ac 1 EACH tablet 1 tab PO DAILY 0RF acetaminophen 500 MG tablet 650 mg PO Q4HP PRN (Reason: Pain) 0RF melatonin 5 MG tablet 5 mg PO HS 0RF spironolactone 25 mg tablet 25 mg PO QAM 0RF Colace 100 MG capsule 100 mg PO BID 0RF bisacodyl [Dulcolax (bisacodyl)] 5 mg Tablet,Delayed Release (Dr/Ec) See Rx Instructions .ROUTE .COMPLEX 0RF Rx Instructions: One tablet every other day Ferrex 150 150 mg capsule 150 mg PO QPM 0RF senna 8.6 mg tablet 8.6 mg PO QPM 0RF Mucinex 600 mg tablet 600 mg PO BIDP PRN (Reason: cough and congestion) 0RF Dulcolax (bisacodyl) 10 mg suppository 10 mg PRN PRN (Reason: Constipation) 0RF Fleet Enema 118 ml PRN PRN (Reason: Constipation) 0RF Artificial Tears 1 drp OU TID 0RF Other Ambulatory Orders: Hemoglobin and Hematocrit (Routine) Timeframe: 2 Days Facility: [facility] - Location: Laboratory Ordered By: Cece Ring Follow Up Plan Follow up with: Jeremi Harp MD [Primary Care Provider] - Patient Disposition: Xfer [facility] Overall status at discharge: patient is back to baseline QUALITY VTE Deep Vein Thrombosis/Pulmonary Embolism Present on Admission: No
[2021-12-29] MEDS: SENNOSIDES 1 TABLET PO SCH ×2 (21:16→21:19)
[2021-12-29] MEDS: METOPROLOL SUCCINATE 25 MG TAB.XL.24H PO SCH ×2 (21:16→21:20)
[2021-12-29] MEDS: MELATONIN 3 MG TABLET PO SCH ×2 (21:17→21:19)
[2021-12-30] MEDS: 0.9 % SODIUM CHLORIDE 10 ML SYRINGE IV SCH (05:37)
[2021-12-30] MEDS: PANTOPRAZOLE 40 MG VIAL IV SCH (07:11)
[2021-12-30] MEDS: LEVOTHYROXINE 25 MCG TABLET PO SCH (07:17)
[2021-12-30 08:35] LABS: Hematocrit 33.8 % (34.1-44.9); Hemoglobin 10.5 g/dL (11.2-15.7)
--- NOTE | 2021-12-30 08:47 | Internal Med Progress Note ---
SUBJECTIVE Subjective Patient information: Note initiated : 12/30/21 at 8:41 am Service Date, if different from initiated Date: [] Patient: Vickie Guadarrama 81 y/o F admitted on 12/28/21 for weakness. Chief Complaint: [] Interval history: Vickie Guadarrama is a 81 year old female with a history not limited to hypertension, atrial fibrillation, hypothyroidism, ascending aortic aneurysm, vascular dementia, reported upper GI bleed in 2019 who currently resides in a shelter facility. Staff at the SNF noticed bright red blood per rectum on 12/27/2021. The patient was sent to the emergency department where she was noted to have melanotic stools. The patient was hemodynamically stable, hemoglobin was normal at 13.2. The patient was noted to be taking Eliquis 2.5 mg twice daily for atrial fibrillation. Hospital medicine was asked to admit the patient for monitoring and further management. The patient is unable to provide any history due to dementia. Collateral information obtained from the patient's daughter revealed that the patient had a GI bleed in 2018 that was probably an upper GI bleed. Eliquis was held at that time, the patient was treated with PPI. Patient's daughter recalls the diagnosis of a gastric ulcer but does not remember the details. She said that Eliquis was held at that time but the patient unfortunately developed an ischemic stroke likely secondary to atrial fibrillation and Eliquis was resumed. Goals of care were discussed, the patient's daughter confirmed that the patient's CODE STATUS is DNR/DNI. 12/28 Witnessed bloody stools, hemoglobin trended down but still low normal range. WBC increased from 14.7 to 18.8. Potassium mildly elevated at 5.2. Iron studies consistent with chronic inflammation. Goals of care discussed with the patient's daughter Mnea Pathak, she does not want invasive procedures performed but is ok with serial blood draws to follow hemoglobin and medical management as cu rrently being provided. 12/30 Sarah barbosa examined, no blood in stools noted, Pt lying in bed not really communicating with myself or staff patient has not been tolerating po diet at all Patient was slated for discharge this AM, I was not very sure if the patient could be safely d ischarged to SNF given her poor oral intake, as well as over all declininig condition I spoke to the patients daugther Mena Pathak, explained the present condition and strongly recommended hospice care at this stage given her decline, She was a bit hesitant to start same, but understands that the patient is not doing well Our staff has discussed the patients condition with SNF, who are aware of the patients decline and need to consider hospice, they noted that they will discuss this with their director/patients family and initiate hospice care Patient is already dnr./dni comfort measures as outlined by discussin with hong family by previous providers I have stopped/ held the patients eliquis and aldactone at discharge given concern for GI bleed, poor overall prognosis and decreased oral intake. Pertinent ROS: unable to obtain due to medical condition Constitutional Vitals: Vital Signs Temp Pulse Resp BP Pulse Ox 97.3 F 105 H 20 96/63 95 12/30/21 07:08 12/30/21 07:08 12/30/21 07:08 12/30/21 07:08 12/30/21 07:08 Period Temp Pulse Resp BP Sys/Ramírez Pulse Ox Last 24 Hr 97.0 F-98.2 F 77-129 14-20 83-138/63-89 95-98 Intake and Output 12/29/21 12/30/21 12/30/21 21:59 05:59 13:59 Intake Total 0 Output Total 201 250 Balance -201 -250 Weight 56.897 kg Intake & Output: Intake & Output 12/29/21 12/30/21 12/30/21 21:59 05:59 13:59 Intake Total 0 Output Total 201 250 Balance -201 -250 Weight 56.897 kg Intake: Oral 0 Output: Urine Catheter Amount 200 250 # of times incontinent of urine 1 Other: Urine Color Dark Yellow Dark Yellow Additional findings Additional findings: Constitutional; Afebrile, lying in bed, not really communicationg with myself, responds to touch , withdraws to pain Eyes- No icterus, , No periorbital swelling Ears- Ext ear normal, Neck- Midline trachea, supple Respiratory system: Air Entry equal on both sides, No crackles or wheezing, no rhonchi. CVS- Rate rhythm irregular, S1,S2 heard, no gallop, no rub. Abdomen- Soft nontender abdomen, no organomegaly, no tenderness, no guarding or rigidity, [employer]- AOOx0, at baseline. OBJ DATA Labs CBC & Chem 7: 12/30/21 07:47 12/29/21 07:30 Labs: Abnormal Lab Results 12/30/21 12/29/21 12/29/21 07:47 12:22 07:40 WBC 17.6 H RBC 3.24 L Hgb 10.5 L 10.4 L 10.5 L Hct 33.8 L 34.0 L MCV 104.9 H MCHC 30.9 L Neut % (Auto) 93.1 H Lymph % (Auto) 3.5 L Lymph # (Auto) 0.62 L Absolute Neutrophils 16.37 H PT INR Potassium Chloride Carbon Dioxide BUN Glucose Phosphorus Iron TIBC Transferrin % Sat Direct Bilirubin Total Protein Albumin Globulin Albumin/Globulin Ratio Urine Protein Urine Ketones Urine Occult Blood Urine RBC Urine WBC Ur Squamous Epith Cells Amorphous Crystals Urine Bacteria Hyaline Casts Urine Mucus 12/29/21 12/28/21 12/28/21 07:30 17:56 05:34 WBC RBC Hgb 11.1 L Hct MCV MCHC Neut % (Auto) Lymph % (Auto) Lymph # (Auto) Absolute Neutrophils PT INR Potassium 5.2 H Chloride 110 H Carbon Dioxide 19 L 18 L BUN 37 H 37 H Glucose 111 H Phosphorus 2.4 L Iron 19 L TIBC 134 L Transferrin % Sat 14 L Direct Bilirubin 0.3 H Total Protein 5.6 L Albumin 2.0 L 2.4 L Globulin Albumin/Globulin Ratio 0.8 L Urine Protein Urine Ketones Urine Occult Blood Urine RBC Urine WBC Ur Squamous Epith Cells Amorphous Crystals Urine Bacteria Hyaline Casts Urine Mucus 12/28/21 12/27/21 12/27/21 05:34 12:30 11:30 WBC 18.8 H RBC Hgb Hct MCV 102.7 H MCHC Neut % (Auto) 91.5 H Lymph % (Auto) 4.4 L Lymph # (Auto) 0.82 L Absolute Neutrophils 17.18 H PT 23.5 H INR 2.0 H Potassium Chloride Carbon Dioxide BUN Glucose Phosphorus Iron TIBC Transferrin % Sat Direct Bilirubin Total Protein Albumin Globulin Albumin/Globulin Ratio Urine Protein 30 mg/dl A Urine Ketones Trace A Urine Occult Blood Trace-intact A Urine RBC 18 H Urine WBC 10 H Ur Squamous Epith Cells 22 H Amorphous Crystals Few A Urine Bacteria Few A Hyaline Casts 10 H Urine Mucus Mod A 12/27/21 12/27/21 11:26 11:25 WBC 14.7 H RBC Hgb Hct MCV 102.2 H MCHC Neut % (Auto) 92.1 H Lymph % (Auto) 4.1 L Lymph # (Auto) 0.60 L Absolute Neutrophils 13.53 H PT INR Potassium 5.2 H Chloride Carbon Dioxide BUN 38 H Glucose 139 H Phosphorus Iron TIBC Transferrin % Sat Direct Bilirubin Total Protein Albumin 2.4 L Globulin 4.5 H Albumin/Globulin Ratio 0.5 L Urine Protein Urine Ketones Urine Occult Blood Urine RBC Urine WBC Ur Squamous Epith Cells Amorphous Crystals Urine Bacteria Hyaline Casts Urine Mucus Meds: Medications Acetaminophen (Acetaminophen 325 Mg Tablet) 650 mg PO Q6HP PRN; Protocol PRN Reason: Per Pain Protocol/Fever > 101 Levothyroxine Sodium (Levothyroxine 25 Mcg Tablet) 75 mcg PO QAMAC [facility] Last Admin: 12/30/21 07:17 Dose: Not Given Documented by: Melatonin (Melatonin 3 Mg Tablet) 3 mg PO [facility] Last Admin: 12/29/21 21:19 Dose: Not Given Documented by: Metoprolol Succinate (Metoprolol Succinate 25 Mg Tab.Xl.24h) 12.5 mg PO [facility] Last Admin: 12/29/21 21:20 Dose: Not Given Documented by: Ondansetron HCl (Ondansetron 4 Mg/2 Ml Vial) 4 mg IV Q6HP PRN PRN Reason: Nausea And Vomiting Pantoprazole Sodium (Pantoprazole 40 Mg Vial) 40 mg IV BIDAC [facility] Last Admin: 12/30/21 07:11 Dose: 40 mg Documented by: Senna (Sennosides 1 Tablet) 2 tab PO [facility] Last Admin: 12/29/21 21:19 Dose: Not Given Documented by: Sodium Chloride (0.9 % Sodium Chloride 10 Ml Syringe) 10 ml IV Q8 [facility] Last Admin: 12/30/21 05:37 Dose: 10 ml Documented by: A/P Narrative A/P Narrative: Assessment: 81 year old female with a history not limited to hypertension, atrial fibrillation, hypothyroidism, ascending aortic aneurysm, vascular dementia, reported upper GI bleed in 2019 who currently resides in a shelter facility admitted for a GI bleed. Initial hemoglobin in the ED was normal, the patient was also hemodynamically stable. Goals of care reviewed with the patient's daughter, the patient is DNR/DNI. Plan is to monitor the patient for ongoing bleeding while holding anticoagulation. If the patient c ontinues to have a GI bleed then family will consider endoscopic work-up. #Acute GI bleed #Reported history of upper GI bleed #Atrial fibrillation previously on Eliquis #Mild hyperkalemia #Essential hypertension #History of ischemic stroke #Hypothyroidism #Ascending aortic aneurysm #Vascular dementia Plan -Sarah was slated for dicharge this AM -see discharge summary for details -I have stopped eliquis and aldactone given Gi bleed as well as poor oral intake and overall poor prognosis going forward -Hemoglobin remains stable today at 10.5 -Continue home Toprol with holding parameters, Levothyroxine, melatonin HS. -Family does not want invasive procedures performed. -CODE STATUS: DNR/DNI/ comfort focused care -Disposition: Back to SNF today, they will initiate hospice care on their end. Time Spent With Patient Time: Total time spent is greater than 50% in coordination of care (as documented) at patient's floor/unit and/or counseling patient: Total time spent with greater than 50% in coordination of care (as documented) at patient's floor/unit and/or counseling patient:: Greater than 35 minutes QUALITY VTE Deep Vein Thrombosis/Pulmonary Embolism Present on Admission: No
== END 2021-12-30 09:00 | DRG 378 ==
LOC: MEDSUR 10:21 → ED 10:21 → MEDSUR 15:55
PROVIDERS: ADMIT Internal Medicine; ATTEND Internal Medicine